=== PATIENT | male | born 1965 | race African-American/Black ===

== ENCOUNTER 2020-01-19 15:37 | Emergency (ER) | payer MEDICAID ==
[~2020-01-19] VITALS: Ht 182.9 cm; Wt 91.0 kg
[2020-01-19 15:42] VITALS: BP 126/84
[2020-01-19] MEDS ORDERED: ACETAMINOPHEN 325MG TABLET PO STA ×2 (16:05→16:09)
== END 2020-01-19 19:05 | disposition home or self-care (01) ==
LOC: ER 15:37
DX: M79.605 Pain in left leg (principal); F22 Delusional disorders; Z98.890 Other specified postprocedural states; I10 Essential (primary) hypertension
CPT/HCPCS: 93971; 99284

== ENCOUNTER 2020-09-11 01:25 | Emergency (ER) | payer MEDICAID ==
[~2020-09-11] VITALS: Ht 175.3 cm; Wt 73.0 kg
[2020-09-11] MEDS ORDERED: VISCOUS LIDOCAINE 2% 15 ML UDC PO STA (01:53)
[2020-09-11] MEDS ORDERED: MAGNESIUM/ALUMINUM HYDROXIDE/SIMETHICONE 30ML UDC PO STA (01:53)
[2020-09-11] MEDS ORDERED: ACETAMINOPHEN 325MG TABLET PO STA (01:53)
[2020-09-11 02:05] LABS: BASOPHILS % 0.6 % (0.0-2.0); HEMATOCRIT. 29.2 % (42.0-52.0); HEMOGLOBIN. 9.1 g/dL (14.0-18.0); LYMPHOCYTES % 19.6 % (20.0-50.0); MEAN CORPUSCULAR HEMOGLOBIN 24.4 pg (28.0-32.0); MEAN CORPUSCULAR VOLUME 78.4 fL (80.0-94.0); MEAN PLATELET VOLUME 6.7 fl (7.4-10.4); MONOCYTES % 6.8 % (2.0-8.0); PLATELET 585 x1000/uL (130-400); RED BLOOD CELL COUNT 3.72 mill/uL (4.7-6.1); RED CELL DISTRIBUTION WIDTH 17.5 % (11.6-14.6)
[2020-09-11 02:11] LABS: CHLORIDE 107 mEq/L (98-107)
[2020-09-11 02:15] LABS: ETHANOL BLOOD 23 mg/dL
[2020-09-11 02:32] LABS: CLARITY URINE CLEAR (CLEAR); COLOR URINE YELLOW (YELLOW); KETONES URINE 1+ (NEGATIVE); LEUKOCYTE ESTERASE URINE NEGATIVE (NEGATIVE); NITRITE URINE NEGATIVE (NEGATIVE); OCCULT BLOOD URINE NEGATIVE (NEGATIVE); PH URINE 5.5 (4.5-8.0); PROTEIN URINE 1+ (NEGATIVE); SPECIFIC GRAVITY URINE 1.028 (1.005-1.030)
[2020-09-11 02:45] LABS: *AMPHETAMINES SCREEN URINE NEGATIVE (NEGATIVE); *BARBITURATES SCREEN URINE NEGATIVE (NEGATIVE); *BENZODIAZEPINES SCREEN URINE NEGATIVE (NEGATIVE); *COCAINE SCREEN URINE PRESUMTIVE POSITIVE (NEGATIVE)
[2020-09-11 02:46] LABS: CANNABINOID URINE SCREEN PRESUMTIVE POSITIVE (NEGATIVE); METHADONE URINE SCREEN NEGATIVE (NEGATIVE); OPIATES URINE SCREEN NEGATIVE (NEGATIVE); PHENCYCLIDINE URINE SCREEN NEGATIVE (NEGATIVE)
[2020-09-11] MEDS ORDERED: FAMOTIDINE 20MG TABLET PO SCH (06:15)
[2020-09-11] MEDS ORDERED: VISCOUS LIDOCAINE 2% 15 ML UDC PO SCH (06:15)
[2020-09-11] MEDS ORDERED: MAGNESIUM/ALUMINUM HYDROXIDE/SIMETHICONE 30ML UDC PO SCH (06:15)
[2020-09-11] MEDS ORDERED: DICYCLOMINE 10 MG/5 ML ORAL SYR PO SCH (06:15)
[2020-09-11 06:26] VITALS: BP 131/86
== END 2020-09-11 06:26 | disposition home or self-care (01) ==
LOC: ER 01:25
DX: F14.10 Cocaine abuse, uncomplicated (principal); K56.7 Ileus, unspecified; I10 Essential (primary) hypertension
CPT/HCPCS: 36415; 74176; 80053; 80305; 80320; 81003; 84484; 85025; 99285; G0480

== ENCOUNTER 2020-11-23 07:14 | Inpatient (IN) | payer MEDICAID ==
[~2020-11-23] VITALS: Ht 170.2 cm; Wt 75.8 kg
[2020-11-23] MEDS ORDERED: MAGNESIUM/ALUMINUM HYDROXIDE/SIMETHICONE 30ML UDC PO ONE (08:00)
[2020-11-23] MEDS ORDERED: PANTOPRAZOLE 40MG DR TABLET PO ONE (08:00)
[2020-11-23] MEDS ORDERED: ACETAMINOPHEN 325MG TABLET PO ONE (08:00)
[2020-11-23 08:36] LABS: CHLORIDE 108 mEq/L (98-107)
[2020-11-23 08:52] LABS: BASOPHILS % 0.3 % (0.0-2.0); EOSINOPHILS % 0.8 % (0.0-5.0); LYMPHOCYTES % 10.7 % (20.0-50.0); MEAN CORPUSCULAR VOLUME 72.9 fL (80.0-94.0); MEAN PLATELET VOLUME 6.8 fl (7.4-10.4); MONOCYTES % 5.5 % (2.0-8.0); NEUTROPHILS % 82.7 % (40.0-76.0); PLATELET 559 x1000/uL (130-400); RED BLOOD CELL COUNT 1.62 mill/uL (4.7-6.1); RED CELL DISTRIBUTION WIDTH 20.8 % (11.6-14.6)
[2020-11-23 08:59] LABS: HEMATOCRIT. 11.8 % (42.0-52.0); HEMOGLOBIN. 3.4 g/dL (14.0-18.0)
[2020-11-23] MEDS ORDERED: PANTOPRAZOLE 80 MG in SODIUM CHLORIDE 0.9% 100 ML IV STA (10:38)
[2020-11-23] MEDS ORDERED: ONDANSETRON HCL 4MG/2ML INJ IV ONE (10:45)
[2020-11-23] MEDS ORDERED: ONDANSETRON HCL 4MG/2ML INJ ONE (16:06)
[2020-11-23] MEDS ORDERED: DEXT 5%/0.9% NACL 1,000 ML IV ONE (20:30)
[2020-11-23 20:38] LABS: HEMATOCRIT 21.6 % (42.0-52.0); HEMOGLOBIN 7.1 g/dL (14.0-18.0)
[2020-11-23 20:43] LABS: PROTHROMBIN TIME 10.8 sec (9.6-11.0)
[2020-11-23 21:28] VITALS: BP 166/82
[2020-11-23] MEDS ORDERED: ZOLPIDEM TARTRATE 5MG TABLET PO PRN (22:30)
[2020-11-23] MEDS: HYDRALAZINE HCL 10MG TABLET PO SCH (23:39)
[2020-11-24] VITALS: BP 106/87
[2020-11-24] MEDS: PANTOPRAZOLE 80 MG in SODIUM CHLORIDE 0.9% 100 ML IV SCH ×2 (01:42→12:07)
[2020-11-24 04:00] VITALS: BP 147/93
[2020-11-24] MEDS: DEXT 5%/0.45% NACL KCL 20MEQ/L 1,000 ML IV SCH ×3 (04:16→19:09)
[2020-11-24] MEDS ORDERED: HYDRALAZINE HCL 10MG TABLET PO SCH (06:00)
[2020-11-24] MEDS: HYDRALAZINE HCL 10MG TABLET PO SCH ×3 (06:47→22:03)
[2020-11-24 06:52] LABS: BASOPHILS % 0.5 % (0.0-2.0); EOSINOPHILS % 1.9 % (0.0-5.0); HEMATOCRIT. 23.6 % (42.0-52.0); HEMOGLOBIN. 7.7 g/dL (14.0-18.0); LYMPHOCYTES % 17.7 % (20.0-50.0); MEAN CORPUSCULAR HEMOGLOBIN 26.1 pg (28.0-32.0); MEAN CORPUSCULAR VOLUME 79.6 fL (80.0-94.0); MEAN PLATELET VOLUME 6.9 fl (7.4-10.4); MONOCYTES % 6.1 % (2.0-8.0); NEUTROPHILS % 73.8 % (40.0-76.0); PLATELET 407 x1000/uL (130-400); RED BLOOD CELL COUNT 2.96 mill/uL (4.7-6.1); RED CELL DISTRIBUTION WIDTH 19.5 % (11.6-14.6)
[2020-11-24 08:00] VITALS: BP 158/105
[2020-11-24 08:07] LABS: CHLORIDE 113 mEq/L (98-107)
[2020-11-24] MEDS ORDERED: MIDAZOLAM HCL 2 MG/2 ML VIAL ONE (09:37)
[2020-11-24] MEDS ORDERED: ONDANSETRON HCL 4MG/2ML INJ IV PRN ×2 (10:30→11:15)
[2020-11-24] MEDS ORDERED: FENTANYL CITRATE/PF 50MCG/ML 2ML VIAL IV PRN (10:30)
[2020-11-24] MEDS ORDERED: LABETALOL 5MG/ML SYR 20 MG/4 ML SYRINGE IV NR (10:30)
[2020-11-24 12:00] VITALS: BP 160/107
[2020-11-24] MEDS: METOCLOPRAMIDE HCL 10MG/2ML VIAL IV SCH ×2 (12:07→17:31)
[2020-11-24] MEDS: SUCRALFATE 1 G/10 ML UDC PO SCH ×3 (12:07→22:02)
[2020-11-24] MEDS ORDERED: ACETAMINOPHEN 650MG/20.3ML UDC PO PRN (12:30)
[2020-11-24] MEDS: AMLODIPINE 10MG TABLET PO SCH (12:50)
[2020-11-24 16:00] VITALS: BP 151/96
[2020-11-24] MEDS ORDERED: TRAMADOL 50MG TABLET PO PRN (17:15)
[2020-11-24] MEDS ORDERED: VISCOUS LIDOCAINE 2% 15 ML UDC MM PRN (17:15)
[2020-11-24] MEDS ORDERED: NALOXONE HCL 0.4MG/ML VIAL IV PRN (17:30)
[2020-11-24] MEDS: GABAPENTIN 300MG CAPSULE PO SCH (17:30)
[2020-11-24] MEDS ORDERED: PANTOPRAZOLE SODIUM 40 MG/VIAL IV SCH (18:00)
[2020-11-24 20:00] VITALS: BP 128/78
[2020-11-24] MEDS: PANTOPRAZOLE SODIUM 40 MG/VIAL IV SCH (21:00)
[2020-11-24 23:31] LABS: HEMATOCRIT 28.4 % (42.0-52.0); HEMOGLOBIN 9.4 g/dL (14.0-18.0)
[2020-11-24 23:42] LABS: PROTHROMBIN TIME 10.5 sec (9.6-11.0)
[2020-11-25] VITALS: BP 133/87
[2020-11-25 04:00] VITALS: BP 146/85
[2020-11-25] MEDS: SUCRALFATE 1 G/10 ML UDC PO SCH ×4 (06:26→21:36)
[2020-11-25] MEDS: DEXT 5%/0.45% NACL KCL 20MEQ/L 1,000 ML IV SCH (06:26)
[2020-11-25] MEDS: METOCLOPRAMIDE HCL 10MG/2ML VIAL IV SCH ×3 (06:26→18:14)
[2020-11-25] MEDS: HYDRALAZINE HCL 10MG TABLET PO SCH ×3 (06:26→21:37)
[2020-11-25 07:17] LABS: HEMATOCRIT. 28.5 % (42.0-52.0); HEMOGLOBIN. 9.2 g/dL (14.0-18.0); MEAN CORPUSCULAR HEMOGLOBIN 26.1 pg (28.0-32.0); MEAN CORPUSCULAR VOLUME 81.1 fL (80.0-94.0); MEAN PLATELET VOLUME 6.9 fl (7.4-10.4); PLATELET 392 x1000/uL (130-400); RED BLOOD CELL COUNT 3.52 mill/uL (4.7-6.1); RED CELL DISTRIBUTION WIDTH 20.8 % (11.6-14.6)
[2020-11-25 07:33] LABS: CHLORIDE 110 mEq/L (98-107)
[2020-11-25 07:52] LABS: FOLIC ACID (FOLATE) SERUM 6.2 ng/mL (>5.38)
[2020-11-25 08:00] VITALS: BP 150/91
[2020-11-25] MEDS: AMLODIPINE 10MG TABLET PO SCH (09:21)
[2020-11-25] MEDS: GABAPENTIN 300MG CAPSULE PO SCH ×3 (09:21→18:14)
[2020-11-25] MEDS: PANTOPRAZOLE SODIUM 40 MG/VIAL IV SCH ×2 (09:21→21:36)
[2020-11-25] MEDS ORDERED: VISCOUS LIDOCAINE 2% 15 ML UDC MM PRN (10:30)
[2020-11-25 12:00] VITALS: BP 146/96
[2020-11-25] MEDS ORDERED: LACTULOSE 20G/30ML UDC PO NR (13:00)
[2020-11-25 14:11] LABS: PLATELET ESTIMATE NORMAL
[2020-11-25 16:00] VITALS: BP 145/84
[2020-11-25 16:10] LABS: CLARITY URINE CLEAR (CLEAR); COLOR URINE YELLOW (YELLOW); KETONES URINE NEGATIVE (NEGATIVE); LEUKOCYTE ESTERASE URINE NEGATIVE (NEGATIVE); NITRITE URINE NEGATIVE (NEGATIVE); OCCULT BLOOD URINE NEGATIVE (NEGATIVE); PH URINE 8.5 (4.5-8.0); PROTEIN URINE NEGATIVE (NEGATIVE); SPECIFIC GRAVITY URINE 1.008 (1.005-1.030)
[2020-11-25 20:00] VITALS: BP 125/82
[2020-11-26] VITALS: BP 131/69
[2020-11-26] MEDS: DEXT 5%/0.45% NACL KCL 20MEQ/L 1,000 ML IV SCH ×2 (00:38→11:00)
[2020-11-26 04:00] VITALS: BP 145/93
[2020-11-26] MEDS: METOCLOPRAMIDE HCL 10MG/2ML VIAL IV SCH ×2 (06:37→13:09)
[2020-11-26] MEDS: HYDRALAZINE HCL 10MG TABLET PO SCH ×2 (06:37→14:54)
[2020-11-26] MEDS: SUCRALFATE 1 G/10 ML UDC PO SCH ×2 (07:08→13:09)
[2020-11-26 07:23] LABS: BASOPHILS % 0.6 % (0.0-2.0); EOSINOPHILS % 3.2 % (0.0-5.0); HEMATOCRIT. 27.8 % (42.0-52.0); HEMOGLOBIN. 9.3 g/dL (14.0-18.0); LYMPHOCYTES % 12.8 % (20.0-50.0); MEAN CORPUSCULAR HEMOGLOBIN 26.9 pg (28.0-32.0); MEAN CORPUSCULAR VOLUME 80.1 fL (80.0-94.0); MEAN PLATELET VOLUME 6.9 fl (7.4-10.4); MONOCYTES % 8.3 % (2.0-8.0); NEUTROPHILS % 75.1 % (40.0-76.0); PLATELET 360 x1000/uL (130-400); RED BLOOD CELL COUNT 3.47 mill/uL (4.7-6.1); RED CELL DISTRIBUTION WIDTH 21.1 % (11.6-14.6)
[2020-11-26 07:33] LABS: CHLORIDE 108 mEq/L (98-107)
[2020-11-26 08:21] VITALS: BP 146/93
[2020-11-26] MEDS: GABAPENTIN 300MG CAPSULE PO SCH ×2 (09:01→13:09)
[2020-11-26] MEDS: PANTOPRAZOLE SODIUM 40 MG/VIAL IV SCH (09:01)
[2020-11-26] MEDS: AMLODIPINE 10MG TABLET PO SCH (09:01)
[2020-11-26] MEDS ORDERED: SUCR1ORA15 PO (10:12)
[2020-11-26] MEDS ORDERED: OMEP40CA20 MT (10:12)
[2020-11-26] MEDS ORDERED: AMLO10TA80 PO (10:12)
[2020-11-26 11:17] VITALS: BP 143/95
[2020-11-26] MEDS ORDERED: LACTULOSE 20G/30ML UDC PO PRN (11:45)
[2020-11-26 12:28] VITALS: BP 156/87
[2020-11-26 16:03] VITALS: BP 133/88
== END 2020-11-26 17:14 | disposition home or self-care (01) | DRG 241 ==
LOC: ER 07:14 → MICUSO 12:03 → 6WST 20:32
PROVIDERS: ADMIT Internal Medicine; ATTEND Internal Medicine
PROC: 30233N1 Transfusion of Nonautologous Red Blood Cells into Peripheral Vein, Percutaneous Approach (ICD-10-PCS; 2020-11-23)
PROC: 0DB78ZX Excision of Stomach, Pylorus, Via Natural or Artificial Opening Endoscopic, Diagnostic (ICD-10-PCS; principal; 2020-11-24)
DX: K26.4 Chronic or unspecified duodenal ulcer with hemorrhage (principal); E43 Unspecified severe protein-calorie malnutrition; K22.11 Ulcer of esophagus with bleeding; E83.51 Hypocalcemia; E87.8 Other disorders of electrolyte and fluid balance, not elsewhere classified; F14.90 Cocaine use, unspecified, uncomplicated; D62 Acute posthemorrhagic anemia; F17.210 Nicotine dependence, cigarettes, uncomplicated; K29.71 Gastritis, unspecified, with bleeding; K29.81 Duodenitis with bleeding; K22.5 Diverticulum of esophagus, acquired; K21.9 Gastro-esophageal reflux disease without esophagitis; R79.89 Other specified abnormal findings of blood chemistry; I10 Essential (primary) hypertension; Z20.822 Contact with and (suspected) exposure to COVID-19; K59.00 Constipation, unspecified; Z68.26 Body mass index [BMI] 26.0-26.9, adult; Z71.51 Drug abuse counseling and surveillance of drug abuser; Z71.6 Tobacco abuse counseling; Z59.0 Homelessness
CPT/HCPCS: 36415; 71045; 80048; 80053; 81003; 82607; 82728; 82746; 82941; 83540; 83550; 84132; 84145; 85014; 85018; 85025; 85044; 85049; 85384; 86850; 86900; 86920; 87426; 88305; 88312; 88313; 93005; 99291; C9113; J2250; J2405; J2765; J7040; J7050; P9016

== ENCOUNTER 2024-08-23 01:46 | Inpatient (IN) | payer MEDICAID ==
[~2024-08-23] VITALS: Ht 170.2 cm; Wt 73.1 kg
[2024-08-23] VITALS (8 sets, daily range): BP systolic 121–153; BP diastolic 72–105; PULSE 78–105; RESP 16–26; TEMP 36.2–36.7; O2SAT 93–98
[~2024-08-23 01:46] MED LIST: AMLO10TA80 PO; OMEP40CA20 MT; SUCR1ORA15 PO
[2024-08-23 02:48] LABS: BASOPHILS % 0.6 % (0.0-2.0); HEMATOCRIT. 40.4 % (42.0-52.0); HEMOGLOBIN. 12.9 g/dL (14.0-18.0); LYMPHOCYTES % 17.8 % (20.0-50.0); MEAN CORPUSCULAR HEMOGLOBIN 27.2 pg (28.0-32.0); MEAN PLATELET VOLUME 7.5 fl (7.4-10.4); MONOCYTES % 6.1 % (2.0-8.0); NEUTROPHILS % 73.5 % (40.0-76.0); PLATELET 347 x1000/uL (130-400); RED BLOOD CELL COUNT 4.75 mill/uL (4.7-6.1); RED CELL DISTRIBUTION WIDTH 14.9 % (11.6-14.6); WHITE BLOOD COUNT 7.5 x1000/uL (4.5-11.0)
[2024-08-23 02:50] LABS: PARTIAL THROMBOPLASTIN TIME 27.6 sec (23.4-31.0); PROTHROMBIN TIME 10.7 sec (9.6-11.0)
[2024-08-23 02:51] LABS: CHLORIDE 105 mEq/L (98-107); SODIUM 139 mEq/L (136-145)
[2024-08-23 02:52] LABS: CALCIUM 9.2 mg/dL (8.7-10.4); CARBON DIOXIDE 25 mEq/L (21-32)
[2024-08-23 02:57] LABS: GLUCOSE 127 mg/dL (70-105); UREA NITROGEN BLOOD 12 mg/dL (9-23)
[2024-08-23 02:58] LABS: ETHANOL BLOOD < 10 mg/dL (<10); TROPONIN I HIGH SENSITIVITY 38 ng/L (3.0-53)
[2024-08-23] MEDS: FUROSEMIDE 40MG/4ML VIAL IVP ONE (03:10)
[2024-08-23] MEDS: METHYLPREDNISOLONE SOD SUCC 125MG/2ML (ACT-O-VIAL) IV STA (03:10)
[2024-08-23] MEDS: IPRATROPIUM BROMIDE (0.02%) 0.5MG/2.5ML NEB HHN STA (03:29)
[2024-08-23] MEDS: ALBUTEROL (0.083%) 2.5MG/3ML NEB HHN SCH (03:29)
[2024-08-23 04:48] LABS: *AMPHETAMINES SCREEN URINE NEGATIVE (NEGATIVE)
[2024-08-23 04:49] LABS: *BARBITURATES SCREEN URINE NEGATIVE (NEGATIVE); *BENZODIAZEPINES SCREEN URINE NEGATIVE (NEGATIVE); *COCAINE SCREEN URINE PRESUMPTIVE POSITIVE (NEGATIVE); CANNABINOID URINE SCREEN NEGATIVE (NEGATIVE); ECSTASY MDMA SCREEN URINE NEGATIVE (NEGATIVE); METHADONE URINE SCREEN NEGATIVE (NEGATIVE); OPIATES URINE SCREEN NEGATIVE (NEGATIVE); PHENCYCLIDINE URINE SCREEN NEGATIVE (NEGATIVE)
[2024-08-23] MEDS: HYDRALAZINE 20MG/ML VIAL IV ONE (05:01)
[2024-08-23 05:08] LABS: TROPONIN I HIGH SENSITIVITY 40 ng/L (3.0-53)
[2024-08-23] MEDS ORDERED: CLONIDINE 0.1MG TABLET PO PRN (06:30)
[2024-08-23] MEDS ORDERED: GUAIFENESIN 200MG/10ML SUGAR FREE UDC PO PRN (06:30)
[2024-08-23] MEDS ORDERED: IPRATROPIUM/ALBUTEROL 0.5-3(2.5)MG/3ML NEB HHN PRN (06:30)
[2024-08-23] MEDS ORDERED: ACETAMINOPHEN 325MG TABLET PO PRN (06:30)
[2024-08-23] MEDS: FUROSEMIDE 40MG/4ML VIAL IVP SCH (08:35)
[2024-08-23] MEDS: AMLODIPINE 10MG TABLET PO SCH (08:53)
[2024-08-23] MEDS: HYDRALAZINE HCL 50MG TABLET PO SCH (08:53)
[2024-08-23] MEDS: LOSARTAN 50 MG TABLET PO SCH (08:54)
[2024-08-23] MEDS: KETOROLAC 15MG/ML VIAL IV PRN (14:41)
[2024-08-23] MEDS: IPRATROPIUM/ALBUTEROL 0.5-3(2.5)MG/3ML NEB HHN SCH (15:06)
[2024-08-23] MEDS: LORAZEPAM 2MG/ML UD SYRINGE IV PRN (20:21)
[2024-08-23] MEDS: METOPROLOL TARTRATE 50MG TABLET PO SCH (20:21)
[2024-08-23] MEDS: GABAPENTIN 400MG CAPSULE PO SCH (21:22)
[2024-08-24] VITALS (9 sets, daily range): BP systolic 91–119; BP diastolic 55–81; PULSE 62–100; RESP 18–22; TEMP 36.3–36.9; O2SAT 95–99
[2024-08-24] MEDS: POTASSIUM CHLORIDE 20MEQ TABLET SR PO SCH (08:56)
[2024-08-24] MEDS: ZOLPIDEM TARTRATE 5MG TABLET PO PRN (21:23)
[2024-08-25] VITALS (9 sets, daily range): BP systolic 101–130; BP diastolic 60–86; PULSE 49–115; RESP 18–22; TEMP 36.7–37; O2SAT 96–100
[2024-08-25 12:59] LABS: BASOPHILS % 0.3 % (0.0-2.0); EOSINOPHILS % 1.6 % (0.0-5.0); HEMATOCRIT. 43.3 % (42.0-52.0); HEMOGLOBIN. 14.1 g/dL (14.0-18.0); LYMPHOCYTES % 15.3 % (20.0-50.0); MEAN CORPUSCULAR HGB CONC 32.5 g/dL (31.0-37.0); MEAN PLATELET VOLUME 7.4 fl (7.4-10.4); MONOCYTES % 8.6 % (2.0-8.0); NEUTROPHILS % 74.2 % (40.0-76.0); PLATELET 415 x1000/uL (130-400); RED BLOOD CELL COUNT 5.04 mill/uL (4.7-6.1); RED CELL DISTRIBUTION WIDTH 14.9 % (11.6-14.6); WHITE BLOOD COUNT 8.9 x1000/uL (4.5-11.0)
[2024-08-25 13:05] LABS: CHLORIDE 106 mEq/L (98-107); POTASSIUM 3.9 mEq/L (3.5-5.1); SODIUM 141 mEq/L (136-145)
[2024-08-25 13:06] LABS: CALCIUM 9.1 mg/dL (8.7-10.4); CARBON DIOXIDE 27 mEq/L (21-32)
[2024-08-25 13:11] LABS: CREATININE 1.1 mg/dL (0.6-1.3); GLUCOSE 86 mg/dL (70-105); UREA NITROGEN BLOOD 24 mg/dL (9-23)
[2024-08-26] VITALS (10 sets, daily range): BP systolic 100–136; BP diastolic 54–100; PULSE 63–85; RESP 18–20; TEMP 36.3–37.2; O2SAT 90–98
[2024-08-26] MEDS: METOPROLOL TARTRATE 50MG TABLET PO SCH ×2 (03:45→09:27)
[2024-08-26 06:38] LABS: BASOPHILS % 0.3 % (0.0-2.0); EOSINOPHILS % 1.9 % (0.0-5.0); HEMOGLOBIN. 13.6 g/dL (14.0-18.0); LYMPHOCYTES % 15.4 % (20.0-50.0); MEAN CORPUSCULAR HEMOGLOBIN 27.6 pg (28.0-32.0); MEAN CORPUSCULAR HGB CONC 32.4 g/dL (31.0-37.0); MEAN CORPUSCULAR VOLUME 85.2 fL (80.0-94.0); MEAN PLATELET VOLUME 7.2 fl (7.4-10.4); NEUTROPHILS % 74.4 % (40.0-76.0); PLATELET 391 x1000/uL (130-400); RED BLOOD CELL COUNT 4.92 mill/uL (4.7-6.1); RED CELL DISTRIBUTION WIDTH 15.1 % (11.6-14.6); WHITE BLOOD COUNT 8.5 x1000/uL (4.5-11.0)
[2024-08-26 06:40] LABS: CARBON DIOXIDE 26 mEq/L (21-32); CHLORIDE 106 mEq/L (98-107); POTASSIUM 4.2 mEq/L (3.5-5.1); SODIUM 141 mEq/L (136-145)
[2024-08-26 06:41] LABS: CALCIUM 9.4 mg/dL (8.7-10.4)
[2024-08-26 06:46] LABS: CREATININE 1.1 mg/dL (0.6-1.3); GLUCOSE 95 mg/dL (70-105); UREA NITROGEN BLOOD 24 mg/dL (9-23)
[2024-08-26] MEDS: APIXABAN 5 MG TABLET PO SCH (09:26)
[2024-08-26 21:37] LABS: CLARITY URINE CLEAR (CLEAR); COLOR URINE YELLOW (YELLOW); GLUCOSE URINE NEGATIVE (NEGATIVE); KETONES URINE NEGATIVE (NEGATIVE); LEUKOCYTE ESTERASE URINE NEGATIVE (NEGATIVE); NITRITE URINE NEGATIVE (NEGATIVE); OCCULT BLOOD URINE NEGATIVE (NEGATIVE); PH URINE 6.5 (4.5-8.0); PROTEIN URINE NEGATIVE (NEGATIVE); SPECIFIC GRAVITY URINE 1.012 (1.005-1.030); UROBILINOGEN URINE 0.2 E.U./dL (0.2-1.0)
[2024-08-27] VITALS (8 sets, daily range): BP systolic 92–121; BP diastolic 61–74; PULSE 71–84; RESP 16–20; TEMP 36.4–37.1; O2SAT 96–100
[2024-08-27 06:48] LABS: CARBON DIOXIDE 28 mEq/L (21-32); CHLORIDE 103 mEq/L (98-107); POTASSIUM 4.1 mEq/L (3.5-5.1); SODIUM 140 mEq/L (136-145)
[2024-08-27 06:49] LABS: CALCIUM 9.9 mg/dL (8.7-10.4)
[2024-08-27 06:53] LABS: CREATININE 1.3 mg/dL (0.6-1.3)
[2024-08-27 06:54] LABS: GLUCOSE 95 mg/dL (70-105); UREA NITROGEN BLOOD 26 mg/dL (9-23)
[2024-08-27 08:50] LABS: BASOPHILS % 0.3 % (0.0-2.0); EOSINOPHILS % 2.2 % (0.0-5.0); HEMATOCRIT. 42.8 % (42.0-52.0); HEMOGLOBIN. 13.7 g/dL (14.0-18.0); LYMPHOCYTES % 16.9 % (20.0-50.0); MEAN CORPUSCULAR HEMOGLOBIN 27.8 pg (28.0-32.0); MEAN CORPUSCULAR HGB CONC 32.1 g/dL (31.0-37.0); MEAN CORPUSCULAR VOLUME 86.5 fL (80.0-94.0); MEAN PLATELET VOLUME 7.5 fl (7.4-10.4); MONOCYTES % 8.3 % (2.0-8.0); NEUTROPHILS % 72.3 % (40.0-76.0); PLATELET 413 x1000/uL (130-400); RED BLOOD CELL COUNT 4.95 mill/uL (4.7-6.1); WHITE BLOOD COUNT 7.7 x1000/uL (4.5-11.0)
[2024-08-27] MEDS ORDERED: FURO-151 MT (12:44)
[2024-08-27] MEDS ORDERED: METO-539 PO (12:44)
[2024-08-27] MEDS ORDERED: APIX5TAB PO (12:44)
[2024-08-27] MEDS ORDERED: POTA-205 MT (12:44)
[2024-08-27] MEDS ORDERED: LOSA50TA41 PO (12:44)
== END 2024-08-27 17:45 | disposition home or self-care (01) | DRG 133 ==
LOC: ER 02:37 → 7WST 03:57 → ENRESERV 04:28
PROVIDERS: ADMIT Internal Medicine; ATTEND Internal Medicine
DX: J96.01 Acute respiratory failure with hypoxia (principal); I50.23 Acute on chronic systolic (congestive) heart failure; I42.0 Dilated cardiomyopathy; I47.29 Other ventricular tachycardia; I11.0 Hypertensive heart disease with heart failure; J68.0 Bronchitis and pneumonitis due to chemicals, gases, fumes and vapors; F14.10 Cocaine abuse, uncomplicated; I48.91 Unspecified atrial fibrillation; F17.210 Nicotine dependence, cigarettes, uncomplicated; Z91.148 Patient's other noncompliance with medication regimen for other reason; Z79.82 Long term (current) use of aspirin
CPT/HCPCS: 36415; 71045; 80048; 80305; 80320; 81003; 83735; 83880; 84484; 85025; 87426; 93005; 93306; 94070; 94640; 94664; 97161; 98960; 99291; J0360; J1885; J1940; J2060; J2919; G0480